=== PATIENT | male | born 1950 | race Caucasian/White ===

== ENCOUNTER 2024-02-10 12:47 | Emergency (ER) | payer OTHER | END 2024-02-10 15:24 | disposition home or self-care (01) | LOC: JD.ED 12:47 | DX: S83.91XA Sprain of unspecified site of right knee, initial encounter (principal); Z88.1 Allergy status to other antibiotic agents; X58.XXXA Exposure to other specified factors, initial encounter; Y93.01 Activity, walking, marching and hiking | CPT/HCPCS: 73564-26-RT; 73564-RT; 99283 ==